=== PATIENT | female | born 1985 | race Caucasian/White ===

== ENCOUNTER → 2017-02-02 | Outpatient (CLI) | payer BC ==
[~2017-02-02] MED LIST: IRON325 M1; MOTRIN 600600 MG/TAB PO; PERCOCET 325 MG1 TA2 PO; PRENATAL1 TA1
== END ==
LOC: ZCOL.LAB 14:41
DX: N61.1 Abscess of the breast and nipple (principal)

== ENCOUNTER → 2019-01-04 | Outpatient (CLI) | payer BC | LOC: MC.RAD 07:51 | DX: R92.2 Inconclusive mammogram (principal); N63.10 Unspecified lump in the right breast, unspecified quadrant ==

== ENCOUNTER → 2019-03-04 | Outpatient (CLI) | payer BC | LOC: ZCOL.LAB 16:06 | DX: N61.1 Abscess of the breast and nipple (principal) ==